=== PATIENT | female | born 1955 | race Caucasian/White ===

== ENCOUNTER 2017-09-21 17:57 | Inpatient (IN) | payer MEDICAID ==
[2017-09-21] MEDS ORDERED: NITROGLYCERIN OINT 2% 1 INCH PACKET TP STA (18:48)
[2017-09-21] MEDS ORDERED: NITROGLYCERIN OINT 2% 1 INCH PACKET TP ONE (18:51)
--- NOTE | 2017-09-21 19:01 | ED Physician Chart ---
ED Chief Complaint/HPI - Patient Information Date Seen:: 09/21/17 Time Seen:: 18:00 Chief Complaint:: High Blood Pressure History of Present Illness:: pt presents with elevated BP after going to a clinic for a routine check-up; pt denies any complaints; no report of trauma, H/as, neck pain, S/T, C/P, SOB, cough, Abd. Pain, A/N/V/D/C, fever, chills, or urinary s/s Allergies:: Allergies Allergy/AdvReac Type Severity Reaction Status Date / Time No Known Allergies Allergy Verified 09/21/17 18:11 Vitals:: Vital Signs - 8 hr 09/21/17 09/21/17 09/21/17 18:11 18:52 18:53 Temp 97.8 F HR 72 66 66 RR 22 BP 189/82 203/99 O2 Sat % 99 Historian:: Patient, Family Member Review:: Nurse's Note Reviewed ED Review of Systems - Review of Systems General/Constitutional: No fever, No chills, No weight loss, No weakness, No diaphoresis, No edema, No loss of appetite Skin: No skin lesions, No rash, No bruising Head: No headache, No light-headedness Eyes: No loss of vision, No pain, No diplopia ENT: No earache, No nasal drainage, No sore throat, No tinnitus Neck: No neck pain, No swelling, No thyromegaly, No stiffness, No mass noted Cardio Vascular: Chest pain, Palpitations, No PND, No orthopnea, No edema Pulmonary: SOB, No cough, No sputum, No wheezing GI: No nausea, No vomiting, No diarrhea, No pain, No melena, No hematochezia, No constipation, No hematemesis G/U: No dysuria, No frequency, No hematuria, No nacturia [employer]: No vaginal discharge, No abnormal vaginal bleed, No contraction Musculoskeletal: No bone or joint pain, No back pain, No muscle pain Endocrine: No polyuria, No polydipsia Psychiatric: No prior psych history, No depression, No anxiety, No suicidal ideation, No homicidal ideation, No auditory hallucination, No visual hallucination Hematopoietic: No bruising, No lymphadenopathy Allergic/Immuno: No urticaria, No angioedema Neurological: No syncope, No focal symptoms, No weakness, No paresthesia, Headache, No seizure, No dizziness, No confusion, No vertigo ED Past Medical History - Past Medical History Obtainable: Yes Past Medical History: HTN, DM, CAD, Dyslipidemia Family History: Diabetes Melitus, HTN Social History: Non Smoker, No Alcohol, No Drug Use, Surgical History: None Psychiatricy History: None Medication: Reviewed Family Medical History - Family Member Mother History Unknown: Yes ED Physical Exam - Physical Examination General/Constitutional: Awake, Well-developed, well-nourished, Alert, No distress, GCS 15, Non-toxic appearing, Ambulatory Head: Atraumatic Eyes: Lids, conjuctiva normal, PERRL, EOMI Skin: Nl inspection, No rash, No skin lesions, No ecchymosis, Well hydrated, No lymphadenopathy ENMT: External ears, nose nl, TM canals nl, Nasal exam nl, Lips, teeth, gums nl , Oropharynx nl, Tonsils nl Neck: Nontender, Full ROM w/o pain, No JVD, No nuchal rigidity, No bruit, No mass, No stridor Respiratory: Nl effort/Exclusion, Clear to Auscultation, No Wheeze/Rhonchi/Rales Cardio Vascular: RRR, No murmur, gallop, rubs, NL S1 S2, Carotid/Femoral/Distal pulses equal bilaterally GI: No tenderness/rebounding/guarding, No organomegaly, No hernia, Normal BS's, Nondistended, No mass/bruits, No McBurney tenderness : No CVA tenderness Extremities: No tenderness or effusion, Full ROM, normal strength in all extremities, No edema, Normal digits & nails Neuro/Psych: Alert/oriented, DTR's symmetric, Normal sensory exam, Normal motor strength, Judgement/insight normal, Mood normal, Normal gait, No focal deficits Misc: Normal back, No paraspinal tenderness ED Labs/Radiology/EKG Results - Lab Results Comments:: K+: 3.4; + Anemia - Radiology Results Comments:: NAD - EKG Interpretations EKG Time:: 16:14 Rate & Rhythm: 68; NSR Comments:: T-Wave Inversion in V4, V5, and V6; LVH ED Septic Shock - . Is Septic Shock (SBP<90, OR Lactate>4 mmol\L) present?: No - <6hrs of presentation: Vital Signs: Vital Signs - 8 hr 09/21/17 09/21/17 09/21/17 18:11 18:52 18:53 Temp 97.8 F HR 72 66 66 RR 22 BP 189/82 203/99 O2 Sat % 99 ED Reassessment (Disposition) - Reassessment Reassessment Condition:: Improved - Diagnosis Diagnosis:: Dx: Uncontrolled Hypertension; Myocardial Ischemia; LVH; HTN; DM; Hypokalemia; Anemia - Aftercare/Follow up Instructions Aftercare/Follow-Up Instructions:: Counseled pt regarding lab results/diagnosis & need follow up, Counseled pt & family regarding lab results/diagnosis & need follow up - Patient Disposition Discharge/Transfer:: Acute Care w/in this hosp Accepting Physician:: Dr. Martin Time Called:: 1929 Time Responded:: 19:30 Admitted to:: Telemetry Spoke to:: Dr. Martin Admitting Medical Physician:: Dr. Martin Condition at Disposition:: Stable, Improved ED Discharge Plan - Patient Disposition Admit/Discharge/Transfer: Acute Care w/in this hosp
[2017-09-21 19:16] LABS: MEAN PLATELET VOLUME 7.3 fl; WHITE BLOOD COUNT 6.7 Th/cmm (4.8-10.8)
[2017-09-21 19:25] LABS: ALB/GLOB RATIO 0.9 (1.0-1.8); ALBUMIN 3.1 gm/dL (3.7-5.3); ANION GAP 8.9 (7.0-16.0); BILIRUBIN,TOTAL 0.2 mg/dL (0.3-1.0); CALCIUM SERUM 8.8 mg/dL (8.6-10.3); CARBON DIOXIDE 21.5 mEq/L (21.0-31.0); CREATININE - SERUM 2.5 mg/dL (0.6-1.2); GFR AFRICAN-AMERICAN 25.3 ml/min (>90); GFR NON AFRICAN-AMERICAN 20.9 ml/min; POTASSIUM SERUM 3.4 mEq/L (3.5-5.1); TOTAL PROTEIN,SERUM 6.4 gm/dL (6.0-8.3)
[2017-09-21 19:28] LABS: INR 0.89 (0.5-1.4); PROTHROMBIN TIME (TEST) 9.1 SECONDS (9.5-11.5)
[2017-09-21 19:30] LABS: % BASOPHILS 0.6 % (0.0-2.0); % EOSINOPHILS 2.1 % (0.0-5.0); % LYMPHOCYTES 44.3 % (20.0-50.0); % MONOCYTES 7.7 % (2.0-10.0); % NEUTROPHILS 45.3 % (40.0-80.0); EOSINOPHILE ABSOLUTE 0.1 Th/cmm (0.1-0.4); HEMATOCRIT 30.9 % (41.0-60); HEMOGLOBIN 10.9 gm/dL (12-16); LYMPHOCYTE ABSOLUTE 3.1 Th/cmm (1.5-3.0); MEAN CELL VOLUME 84.7 fl (81-100); MEAN CORPUSCULAR HEMOGLOBIN 29.9 pg (27.0-31.0); MEAN CORPUSCULAR HGB CONC 35.3 pg (28.0-36.0); MONOCYTE ABSOLUTE 0.5 Th/cmm (0.3-1.0); PLATELET COUNT 295 Th/cmm (150-400); RED BLOOD COUNT 3.65 Mil/cmm (3.80-5.10); RED CELL DISTRIBUTION WIDTH 13.2 % (11.5-20.0)
[2017-09-21] MEDS ORDERED: Potassium Chloride 20 mEq ER Tab PO ONE (20:30)
[2017-09-21 21:29] LABS: A1C % 9.1 % (4.0-6.0)
[2017-09-21 21:32] VITALS: BP 158/84
[2017-09-21] MEDS: INSULIN HUMAN REGULAR 100 UNITS/ML UNIT SUBQ SCH (22:09)
[2017-09-21] MEDS: Insulin Detemir 100 units/mL 10mL Vial SUBQ SCH (23:28)
--- NOTE | 2017-09-21 23:32 | History & Physical ---
ADMIT DATE: 09/21/2017 HISTORY OF PRESENT ILLNESS: The patient presented with a highly elevated BP, uncontrolled blood pressure, hypertensive encephalopathy. The patient presented with a high BP and the patient complained of some headache and some discomfort, complains of no neck pain, no shortness of breath, no abdominal pain and the patient's blood pressure is up unusually, he was given blood pressure medication to bring it down. Nurses' notes are reviewed. REVIEW OF SYSTEMS: Otherwise, negative. PAST MEDICAL HISTORY: Hypertension, diabetes, coronary artery disease, hyperlipidemia. PHYSICAL EXAMINATION: GENERAL: Alert, oriented, female patient . VITAL SIGNS: Noted. HEAD: Normal. ENT: Normal. NECK: Supple, nontender. LUNGS: Clear. CARDIOVASCULAR SYSTEM: S1, S2 heard. ABDOMEN: Soft. Bowel sounds are heard. LABORATORY DATA: Potassium was 3.4. The patient also had anemia. EKG showed T-wave inversion in V3, V4, V5, V6. DIAGNOSES: Acute accelerated hypertension, possible encephalopathy, myocardial ischemia, rule out ND, LVH pattern, history of hypertension, diabetes, hyperkalemia, anemia. PLAN: The patient is being admitted. I will go ahead and do cardiac workup and control her blood pressure and will call Cardiology consult and I will follow the patient. JOB# [id number]
[2017-09-22 06:46] LABS: % BASOPHILS 0.9 % (0.0-2.0); % EOSINOPHILS 2.4 % (0.0-5.0); % LYMPHOCYTES 46.1 % (20.0-50.0); % MONOCYTES 7.6 % (2.0-10.0); EOSINOPHILE ABSOLUTE 0.1 Th/cmm (0.1-0.4); HEMATOCRIT 30.1 % (41.0-60); HEMOGLOBIN 10.1 gm/dL (12-16); LYMPHOCYTE ABSOLUTE 2.6 Th/cmm (1.5-3.0); MEAN CELL VOLUME 85.7 fl (81-100); MEAN CORPUSCULAR HEMOGLOBIN 28.7 pg (27.0-31.0); MEAN CORPUSCULAR HGB CONC 33.4 pg (28.0-36.0); MEAN PLATELET VOLUME 7.2 fl; MONOCYTE ABSOLUTE 0.4 Th/cmm (0.3-1.0); NEUTROPHILE ABSOLUTE 2.3 Th/cmm (1.8-8.0); PLATELET COUNT 253 Th/cmm (150-400); RED BLOOD COUNT 3.51 Mil/cmm (3.80-5.10); RED CELL DISTRIBUTION WIDTH 13.1 % (11.5-20.0); WHITE BLOOD COUNT 5.4 Th/cmm (4.8-10.8)
[2017-09-22 07:04] LABS: ANION GAP 9.3 (7.0-16.0); CALCIUM SERUM 8.6 mg/dL (8.6-10.3); CARBON DIOXIDE 19.5 mEq/L (21.0-31.0); CREATININE - SERUM 2.3 mg/dL (0.6-1.2); GFR AFRICAN-AMERICAN 27.8 ml/min (>90); POTASSIUM SERUM 3.8 mEq/L (3.5-5.1)
--- NOTE | 2017-09-22 07:51 | Diagnostic Imaging Report ---
CHEST X-RAY: AP view INDICATION: pain COMPARISON: None FINDINGS: Increased interstitial lung markings are noted. No focal consolidation or effusions. Borderline prominent heart is noted. The osseous structures are intact. IMPRESSION: Increased interstitial lung markings, nonspecific. No focal consolidation or evidence of nakul CHF. Borderline prominent heart.
--- NOTE | 2017-09-22 08:09 | General Progress Note ---
Subjective - Review of Systems Events since last encounter: patient in no acute distress Objective - Results Result Diagrams: 09/22/17 05:00 09/22/17 06:15 Recent Labs: Laboratory Last Values WBC 5.4 Th/cmm (4.8-10.8) 09/22/17 05:00 RBC 3.51 Mil/cmm (3.80-5.10) L 09/22/17 05:00 Hgb 10.1 gm/dL (12-16) L 09/22/17 05:00 Hct 30.1 % (41.0-60) L 09/22/17 05:00 MCV 85.7 fl (81-100) 09/22/17 05:00 MCH 28.7 pg (27.0-31.0) 09/22/17 05:00 MCHC Differential 33.4 pg (28.0-36.0) 09/22/17 05:00 RDW 13.1 % (11.5-20.0) 09/22/17 05:00 Plt Count 253 Th/cmm (150-400) 09/22/17 05:00 MPV 7.2 fl 09/22/17 05:00 Neutrophils % 43.0 % (40.0-80.0) 09/22/17 05:00 Lymphocytes % 46.1 % (20.0-50.0) 09/22/17 05:00 Monocytes % 7.6 % (2.0-10.0) 09/22/17 05:00 Eosinophils % 2.4 % (0.0-5.0) 09/22/17 05:00 Basophils % 0.9 % (0.0-2.0) 09/22/17 05:00 PT 9.1 SECONDS (9.5-11.5) L 09/21/17 19:02 INR 0.89 (0.5-1.4) 09/21/17 19:02 Sodium 139 mEq/L (136-145) 09/22/17 06:15 Potassium 3.8 mEq/L (3.5-5.1) 09/22/17 06:15 Chloride 114 mEq/L (98-107) H 09/22/17 06:15 Carbon Dioxide 19.5 mEq/L (21.0-31.0) L 06/14/18 06:15 Anion Gap 9.3 (7.0-16.0) 09/22/17 06:15 BUN 43 mg/dL (7-25) H 09/22/17 06:15 Creatinine 2.3 mg/dL (0.6-1.2) H 09/22/17 06:15 Est GFR ( Amer) 27.8 ml/min (>90) 09/22/17 06:15 Est GFR (Non-Af Amer) 23.0 ml/min 09/22/17 06:15 BUN/Creatinine Ratio 18.7 09/22/17 06:15 Glucose 105 mg/dL (70-105) D 09/22/17 06:15 POC Glucose 98 MG/DL (70 - 105) 09/22/17 06:20 Hemoglobin A1c % 9.1 % (4.0-6.0) H 09/21/17 Unknown Calcium 8.6 mg/dL (8.6-10.3) 09/22/17 06:15 Total Bilirubin 0.2 mg/dL (0.3-1.0) L 09/21/17 19:02 AST 18 U/L (13-39) 09/21/17 19:02 ALT 11 U/L (7-52) 09/21/17 19:02 Alkaline Phosphatase 80 U/L (34-104) 09/21/17 19:02 Creatine Kinase 154 U/L (30-223) 09/22/17 06:15 CK-MB (CK-2) 5.3 ng/mL (0.6-6.3) 09/21/17 19:02 Troponin I 0.04 ng/mL (0.01-0.05) 09/22/17 03:15 B-Natriuretic Peptide 756.0 pg/mL (5.0-100.0) H 09/21/17 19:02 Total Protein 6.4 gm/dL (6.0-8.3) 09/21/17 19:02 Albumin 3.1 gm/dL (3.7-5.3) L 09/21/17 19:02 Globulin 3.3 gm/dL 09/21/17 19:02 Albumin/Globulin Ratio 0.9 (1.0-1.8) L 09/21/17 19:02 Triglycerides 341 mg/dL (<150) H 09/22/17 06:15 Cholesterol 257 mg/dL (<200) H 09/22/17 06:15 LDL Cholesterol Direct 68 mg/dL (75-193) L 09/22/17 06:15 HDL Cholesterol 39 mg/dL (23-92) 09/22/17 06:15 Serum , Qual NEGATIVE (NEGATIVE) 09/21/17 19:02 - Physical Exam Vitals and I&O: Vital Signs Temp 98 F 09/22/17 02:00 Pulse 52 09/22/17 06:00 Resp 12 09/22/17 06:00 BP 151/73 09/22/17 06:00 Pulse Ox 100 09/22/17 06:00 Intake & Output 09/21/17 09/22/17 09/22/17 18:59 06:59 18:59 Intake Total 300 Balance 300 Weight (lbs) 53.524 kg 50.802 kg Intake: Oral 300 Other: # Voids 2 Weight Source Patient stated Bedscale Active Medications: Current Medications Acetaminophen (Tylenol) 650 mg PO Q6H PRN PRN Reason: Chest Pain Stop: 11/20/17 20:59 Atorvastatin Calcium (Lipitor) 20 mg PO DAILY [facility] Stop: 11/21/17 08:59 Clopidogrel Bisulfate (Plavix) 75 mg PO DAILY [facility] Stop: 11/21/17 08:59 Glipizide (Glucotrol) 5 mg PO DAILY [facility] Stop: 11/21/17 08:59 Insulin Detemir (Levemir Insulin) 30 units SUBQ HS [facility]; Protocol Stop: 11/20/17 22:59 Last Admin: 09/21/17 23:28 Dose: 30 unit Insulin Human Regular (Novolin R) 0 units SUBQ ACHS [facility]; Protocol Stop: 11/20/17 20:59 Last Admin: 09/21/17 22:09 Dose: 4 unit Lisinopril (Zestril) 5 mg PO DAILY [facility] Stop: 11/21/17 08:59 Losartan Potassium (Cozaar) 25 mg PO DAILY [facility] Stop: 11/21/17 08:59 Metformin HCl (Glucophage) 500 mg PO BID [facility] Stop: 11/21/17 08:59 Metoprolol Tartrate (Lopressor) 50 mg PO DAILY [facility] Stop: 11/21/17 08:59 Assessment/Plan - Problem List Patient Problems: All Active Problems HYPERTENSION AT PMD OFFICE (Acute)
[2017-09-22] MEDS: INSULIN HUMAN REGULAR 100 UNITS/ML UNIT SUBQ SCH ×4 (08:50→21:04)
[2017-09-22] MEDS: Atorvastatin Calcium 10 MG TAB PO SCH (08:52)
[2017-09-22] MEDS: Insulin Detemir 100 units/mL 10mL Vial SUBQ SCH (21:04)
--- NOTE | 2017-09-22 23:27 | Consultation ---
DATE OF CONSULTATION: 09/21/[address] Martin. HISTORY OF PRESENT ILLNESS: This is a 62 years old oriental female patient who was brought to the hospital with uncontrolled hypertension. No history of PND or orthopnea. No complaint of chest pain. PAST MEDICAL HISTORY: The patient has had a history of myocardial infarction with stent placement, hypertension, diabetes uncontrolled, hyperlipidemia, and diabetic CKD stage II. FAMILY HISTORY: Unremarkable. SOCIAL HISTORY: The patient has no history of smoking, alcohol abuse. ALLERGIES: No known allergies. PHYSICAL EXAMINATION: VITAL SIGNS: Blood pressure on admission was elevated, at the present time is 130/78, pulse 70, and respirations 20. HEAD: Normocephalic. No lumps or bumps. EYES: Pupils equal, reactive to light. Fundi show AV nicking, sclerae white, conjunctivae pink. NECK: Carotid 2+. Normal upstroke. JVD flat. Thyroid not palpable. Lymph nodes not palpable. CHEST: Shows increased AP diameter. No kyphosis, scoliosis. LUNGS: Bilateral bronchovesicular breath sounds. HEART: PMI fifth intercostal space with lateral to midclavicular line. S1, S2. No S3, S4, soft systolic murmur. ABDOMEN: Soft. Liver, spleen not palpable. No organomegaly. Bowel sounds active. NEUROLOGIC: Unremarkable. EXTREMITIES: Peripheral pulses 2+. No pedal edema. CLINICAL IMPRESSION: 1. Accelerated hypertension. 2. Stable angina, history of coronary artery disease with stent placement. 3. Diabetes mellitus type 2, uncontrolled. 4. Hyperlipidemia. 5. Hypertension. 6. History of myocardial infarction with stent placement. 7. Hypokalemia. 8. Diabetic chronic kidney disease stage II. PLAN: The patient to control the blood pressure. The patient's condition discussed with the son at length. JOB# [id number]
[2017-09-23 05:35] LABS: ANION GAP 9.5 (7.0-16.0); CALCIUM SERUM 8.5 mg/dL (8.6-10.3); CARBON DIOXIDE 20.3 mEq/L (21.0-31.0); CREATININE - SERUM 2.5 mg/dL (0.6-1.2); GFR AFRICAN-AMERICAN 25.3 ml/min (>90); GFR NON AFRICAN-AMERICAN 20.9 ml/min; POTASSIUM SERUM 3.8 mEq/L (3.5-5.1)
[2017-09-23] MEDS: INSULIN HUMAN REGULAR 100 UNITS/ML UNIT SUBQ SCH ×2 (07:02→12:44)
[2017-09-23] MEDS: Atorvastatin Calcium 10 MG TAB PO SCH (09:38)
[2017-09-23] MEDS ORDERED: NIFEdipine 30 mg ER Tab PO ONE (12:44)
--- NOTE | 2017-09-23 14:18 | Cardiology ---
09/22/[address] Martin. M-MODE ECHOCARDIOGRAM: Mitral valve, anterior leaflet of mitral valve shows normal excursion, EF velocity. Posterior leaflet of mitral valve shows normal excursion. Left ventricular posterior wall shows increased thickness, normal excursion. Interventricular septum shows increased thickness, normal excursion, hypertrophy of the left ventricle, ejection fraction 60%. Left atrium enlarged 4.4 cm. Aortic root shows normal dimension, normal excursion of aortic leaflets. CONCLUSION: Hypertrophy of the left ventricle, left atrial enlargement, ejection fraction 60%. 2D ECHO ON THE SAME PATIENT: Long axis view showed normal-sized left ventricle with hypertrophy of the left ventricle. Left atrium enlarged. Aortic root shows normal dimension, normal excursion of aortic leaflets. Short axis view of mitral valve normal. Short axis view of aortic valve normal. Apical four chamber view showed normal-sized left ventricle with hypertrophy of the left ventricle. Left atrium enlarged. Right ventricular cavity, right atrium normal, no pericardial effusion. CONCLUSION: Hypertrophy of the left ventricle. Left atrial enlargement, ejection fraction 60%. Doppler study shows moderate mitral regurgitation, moderate aortic regurgitation, moderate tricuspid regurgitation, mild pulmonary regurgitation. JOB# [id number]
[2017-09-24] MEDS ORDERED: NIFEdipine 30 mg ER Tab PO SCH (09:00)
== END 2017-09-23 16:00 | disposition home or self-care (01) | DRG 190 ==
LOC: ER 17:57 → ICU 19:38
PROVIDERS: ADMIT Internal Medicine; ATTEND Internal Medicine
DX: I25.119 Atherosclerotic heart disease of native coronary artery with unspecified angina pectoris (principal); I21.4 Non-ST elevation (NSTEMI) myocardial infarction; I67.4 Hypertensive encephalopathy; E11.22 Type 2 diabetes mellitus with diabetic chronic kidney disease; E87.5 Hyperkalemia; D64.9 Anemia, unspecified; N18.2 Chronic kidney disease, stage 2 (mild); I12.9 Hypertensive chronic kidney disease with stage 1 through stage 4 chronic kidney disease, or unspecified chronic kidney disease; E78.5 Hyperlipidemia, unspecified; E87.6 Hypokalemia; Z82.49 Family history of ischemic heart disease and other diseases of the circulatory system; Z83.3 Family history of diabetes mellitus; I25.2 Old myocardial infarction
CPT/HCPCS: 36415-UA; 71045-TC; 80048-TC; 80053-TC; 80061-TC; 82550-TC; 82553; 82948-90; 83036-90; 83880-TC; 84484-TC; 84703-TC; 85025-TC; 85610-TC; 93005; 94760; J1815; Z7610